=== PATIENT | female | born 1970 | race Two or more races ===

== ENCOUNTER 2021-07-16 11:15 | Inpatient (IN) | payer OTHER ==
[~2021-07-16] VITALS: Ht 157.5 cm; Wt 54.4 kg
[~2021-07-16 11:15] MED LIST: GILTUSS TR TAB1 EACH PO
[2021-07-21] MEDS ORDERED: HYOSCYAMINE0.125 M1 SL (12:35)
[2021-07-21] MEDS ORDERED: OXYC1TAB9 PO (12:35)
== END 2021-07-21 15:00 | disposition home or self-care (01) | DRG 331 ==
LOC: SURH 07-18 08:00 → O/R 07-18 08:00 → SURH 07-18 11:15
PROVIDERS: ADMIT Surgery; ATTEND Surgery
PROC: 0DBP4ZZ Excision of Rectum, Percutaneous Endoscopic Approach (ICD-10-PCS; 2021-07-18)
PROC: 0DTN4ZZ Resection of Sigmoid Colon, Percutaneous Endoscopic Approach (ICD-10-PCS; principal; 2021-07-18 15:15)
DX: K57.30 Diverticulosis of large intestine without perforation or abscess without bleeding (principal); R19.4 Change in bowel habit; R10.32 Left lower quadrant pain; Z20.822 Contact with and (suspected) exposure to COVID-19